=== PATIENT | female | born 1945 | race Caucasian/White ===

== ENCOUNTER 2024-06-19 15:30 | Emergency (ER) | payer MEDICARE, OTHER ==
[~2024-06-19] VITALS: Ht 162.6 cm; Wt 86.7 kg
[2024-06-19 15:35] VITALS: PULSE 81; RESP 20; TEMP 98.4
[2024-06-19] MEDS ORDERED: MACROBID 100 M100 MG PO (16:07)
[2024-06-19 16:41] VITALS: BP 166/74; PULSE 81; RESP 20; TEMP 97.1; O2SAT 96
== END 2024-06-19 16:30 | disposition home or self-care (01) ==
LOC: FSED 15:34
DX: R30.0 Dysuria (principal); R35.0 Frequency of micturition; Z85.41 Personal history of malignant neoplasm of cervix uteri
CPT/HCPCS: 81003; 99284